=== PATIENT | male | born 1985 | race Hispanic/Latino ===

== ENCOUNTER 2018-10-11 19:10 | Emergency (ER) | payer OTHER ==
[~2018-10-11] VITALS: Ht 177.8 cm; Wt 104.3 kg
--- NOTE | 2018-10-11 20:50 | Diagnostic Imaging Report ---
Exam: Right foot series, 3 views. Clinical History: Status post fall, foot pain Comparison: None. Findings: 3 views of the right foot. There is normal bone mineralization. Negative for acute, displaced fracture or dislocation. Joint spaces are preserved. Tiny inferior calcaneal enthesophyte. No significant soft tissue swelling. Impression: 1. No acute abnormalities. Signed by: Dr. Lui Haddad M.D. on 10/11/2018 8:46 PM
--- NOTE | 2018-10-11 20:51 | Diagnostic Imaging Report ---
Exam: Right Ankle Series. History: Status post fall, ankle pain Comparison: None. DISCUSSION: 3 views of the right ankle. There is normal bone mineralization. No evidence of acute, displaced fracture or dislocation. Ankle mortise is preserved.No osteochondral lesion. No abnormal soft tissue calcification or mass. Minimal soft tissue swelling in the lateral aspect of the ankle. IMPRESSION: 1. Minimal soft tissue swelling in the lateral aspect of the ankle, without associated bony abnormality. The staff physician below has personally reviewed this exam on the date of dictation. Signed by: Dr. Lui Haddad M.D. on 10/11/2018 8:47 PM
--- NOTE | 2018-10-11 21:28 | NUR ---
zakia wrap to right ankle/foot. pt already has crutches from home
== END 2018-10-11 21:30 | disposition home or self-care (01) ==
LOC: ER 19:10
DX: S93.491A Sprain of other ligament of right ankle, initial encounter (principal); M25.571 Pain in right ankle and joints of right foot; X50.1XXA Overexertion from prolonged static or awkward postures, initial encounter; W18.30XA Fall on same level, unspecified, initial encounter; Y99.0 Civilian activity done for income or pay
CPT/HCPCS: 99283